=== PATIENT | male | born 1965 | race Caucasian/White ===

== ENCOUNTER → 2017-01-17 | Outpatient (CLI) | payer BC ==
--- NOTE | 2017-01-17 16:09 | DIAGNOSTIC IMAGING REPORT ---
CERVICAL SPINE 3 VIEWS HISTORY: CERVICAL PAIN COMPARISON: None. FINDINGS: The cervical spine is visualized from C1 through the superior endplate of T1. There is no fracture. No subluxation. Disc spaces are preserved. Prevertebral soft tissues and the atlantodens interval are intact. IMPRESSION: No fracture or subluxation within the cervical spine. Electronically signed by: Segun Mares M.D. 01/17/2017 4:07 PM Dictated Date/Time: 01/17/2017 4:07 PM
== END | disposition home or self-care (01) ==
LOC: C.RAD1850 15:48
PROVIDERS: ATTEND Physician Assistant
DX: M54.2 Cervicalgia (principal)

== ENCOUNTER → 2017-01-31 | Outpatient (CLI) | payer BC ==
--- NOTE | 2017-01-31 15:58 | DIAGNOSTIC IMAGING REPORT ---
SINGLE VIEW PELVIS; 2 VIEWS RIGHT HIP CLINICAL HISTORY: Right groin pain. FINDINGS: An AP view of the pelvis with AP and frog-leg views of the right hip are obtained. No prior studies are available for comparison at the time of dictation. The skeletal structures are well mineralized. No fracture is seen in the hips or bony pelvis. Minimal degenerative change is seen in the hips. The joint spaces of the hips appear well-maintained. The sacroiliac joints and pubic symphysis are normal. Small phleboliths are observed in the pelvis. There is a nonobstructed abdominal bowel gas pattern. The overlying soft tissues are within normal limits. IMPRESSION: No acute bony abnormality is seen in the hips or pelvis. Electronically signed by: Carlos Pantoja M.D. 01/31/2017 3:56 PM Dictated Date/Time: 01/31/2017 3:55 PM
== END | disposition home or self-care (01) ==
LOC: C.RAD1850 15:37
PROVIDERS: ATTEND Nurse Practitioner Adult Health
DX: R10.30 Lower abdominal pain, unspecified (principal)

== ENCOUNTER → 2017-01-31 | Outpatient (CLI) | payer BC ==
[2017-01-31 17:38] LABS: URINE APPEARANCE CLEAR (CLEAR); URINE BILIRUBIN NEG (NEG); URINE COLOR YELLOW; URINE EPITHELIAL CELL AUTO 0-5 /lpf (0-5); URINE NITRITE NEG (NEG); URINE PH 6.5 (4.5-7.5); URINE SPECIFIC GRAVITY 1.012 (1.000-1.030); UROBILINOGEN NEG (NEG); ZZUR CULT IF INDIC CLEAN CATCH NO
[2017-01-31 17:40] LABS: MANUAL MICROSCOPIC REQUIRED? NO; REVIEW REQ? NO
== END | disposition home or self-care (01) ==
LOC: C.LAB1850 16:02
PROVIDERS: ATTEND Internal Medicine
DX: R10.30 Lower abdominal pain, unspecified (principal)

== ENCOUNTER → 2017-02-08 | Outpatient (CLI) | payer BC ==
--- NOTE | 2017-02-08 09:49 | DIAGNOSTIC IMAGING REPORT ---
ABDOMEN ULTRASOUND FOR HERNIA CLINICAL HISTORY: R10.30 GROIN PAIN, RIGHT COMPARISON STUDY: None. FINDINGS: Real-time sonographic imaging of the right inguinal region was performed with utility sales representative images submitted. There is a small fat-containing reducible right inguinal hernia. No masses or fluid collections within the right groin. IMPRESSION: Small fat-containing reducible right inguinal hernia. Electronically signed by: Jake Soria M.D. 02/08/2017 9:47 AM Dictated Date/Time: 02/08/2017 9:47 AM
== END | disposition home or self-care (01) ==
LOC: C.ULTRBC 09:18
PROVIDERS: ATTEND Nurse Practitioner Adult Health
DX: R10.30 Lower abdominal pain, unspecified (principal); K40.90 Unilateral inguinal hernia, without obstruction or gangrene, not specified as recurrent

== ENCOUNTER → 2018-04-03 | Outpatient (CLI) | payer BC, OTHER ==
[2018-04-03 11:14] LABS: BLOOD UREA NITROGEN 15 mg/dl (7-18); CARBON DIOXIDE 25 mmol/L (21-32); CHOLESTEROL 200 mg/dl (0-200); GLUCOSE 115 mg/dl (70-99); LDL CHOLESTEROL CALCULATED 111 mg/dl; SODIUM 138 mmol/L (136-145)
[2018-04-03 11:59] LABS: HEMOGLOBIN A1C 5.6 % (4.5-5.6)
== END | disposition home or self-care (01) ==
LOC: C.LABBC 06:58
PROVIDERS: ATTEND Internal Medicine
DX: Z00.00 Encounter for general adult medical examination without abnormal findings (principal); Z11.59 Encounter for screening for other viral diseases; E78.00 Pure hypercholesterolemia, unspecified; R73.9 Hyperglycemia, unspecified; R35.0 Frequency of micturition